=== PATIENT | male | born 1965 | race Caucasian/White ===

== ENCOUNTER 2021-01-05 14:38 | Emergency (ER) | payer BC, SELFPAY ==
[2021-01-05 14:39] VITALS: BP 144/93; PULSE 76; RESP 20; TEMP 37; O2SAT 97; BMI 39.0
[2021-01-05 14:44] VITALS: BMI 39.0
[2021-01-05 14:45] LABS: Bedside Glucose 81 mg/dL (70-110)
--- NOTE | 2021-01-05 14:58 | CT_ITS ---
STUDY: CT HEAD STROKE PROTOCOL W/O CONTRAST INJECTION REASON FOR EXAM: Male, 55 years old. Neuro deficit, acute, stroke suspected RADIATION DOSAGE (If Supplied By Facility): CTDIvol = ( 44.99 ) mGy, DLP = ( 796.11 ) mGycm TECHNIQUE: Transaxial CT imaging of the brain was performed without administration of intravenous contrast material. Individualized dose optimization techniques were used for this CT. COMPARISON: No relevant priors. FINDINGS: Normal soft tissue structures. Normal calvarium. Normal size ventricles and extra-axial spaces for the patient''s age. Normal white matter tracts of the cerebral hemispheres. Normal basal ganglia and thalami. Normal brainstem. Normal cerebellum. There is no intracranial hemorrhage. There are no findings of an acute ischemic infarction. Atherosclerotic calcification of the cavernous portions of the internal carotid arteries bilaterally. Normal visualized paranasal sinuses. CT/STROKE Brain/Head without Cont IMPRESSION: Normal unenhanced CT scan of the brain. N.B. : The above Results were Read Back by Kwabena Aguilar MD to Fly Contreras and understanding confirmed on 01/05/2021 15:25:41 (ET). Electronically Signed: Kwabena Aguilar MD at 15:26 EDT , Service support ,
--- NOTE | 2021-01-05 14:58 | EKG12_ITS ---
Test Reason : NEURO Blood Pressure : / mmHG Vent. Rate : 081 BPM Atrial Rate : 081 BPM P-R Int : 158 ms QRS Dur : 098 ms QT Int : 370 ms P-R-T Axes : 055 -66 042 degrees QTc Int : 429 ms Normal sinus rhythm Left anterior fascicular block Poor R wave progression Abnormal ECG Confirmed by RADHA MOSQUERA, HAYDE ([id number]), senior editor CHRISTINE HERRERA ([id number]) on 01/08/2021 9:58:29 AM Referred By: KURTIS Confirmed By:HAYDE GARCIA MD
--- NOTE | 2021-01-05 15:00 | ED.VIS.STROK ---
HPI History of Present Illness Chief Complaint: Neuro S/Sx Informant: patient Onset/Context/Timing Onset: Today Context: Gradual Onset Timing: Continuous Quality and Location: Positive for Left Face Parasthesia (Now; initially entire face was tingling including forehead bilaterally) Current Severity: Mild Maximum Severity: Moderate Worsened by: Nothing including late Relieved by: Ibuprofen Associated Symptoms Associated Symptoms: Positive for Headache; Negative for Nausea, Vomiting and Chest Pain Narrative Narrative: Patient developed a headache this morning left retro-orbital/frontal, along with tingling throughout his face bilaterally including the forehead and no other neurologic symptoms. No photophobia, nausea, vomiting, confusion, vision changes. He has a lazy eye and that is no different today than it has been always. He denies any recent injury or illness. He states he had a heart attack a long time ago, but just stopped taking aspirin years ago and does not see a doctor regularly. Therefore he takes no medications for anything right now. He was seen in urgent care today because of the tingling and a concern for stroke sent to the emergency department. He states right now, the headache is gone, ibuprofen took it away and made the tingling almost completely go away along with it, except he just has some slight amount of tingling along his parrish on the left side only and nowhere else. No problems walking today. [facility] Medical History ST elevation (STEMI) myocardial infarction Allergy/AdvReac Type Severity Reaction Status Date / Time No Known Allergies Allergy Verified 01/05/21 14:41 Social History Smoking Status: Current every day smoker tobacco type: cigarettes ROS ROS ED Constitutional Constitutional ED: Denies chills or fever(s) Eyes Eyes: Denies change in vision or diplopia ENT ENT ED: Denies rhinorrhea or sore throat Cardiovascular Cardiovascular: Denies chest pain or palpitations Respiratory/Chest Respiratory/Chest: Denies cough or dyspnea Gastrointestinal Gastrointestinal: Denies abdominal pain, diarrhea, nausea or vomiting Genitourinary Genitourinary ED: Denies dysuria or hematuria Musculoskeletal Musculoskeletal: Denies back pain or neck pain Integumentary Denies abscess or rash Neurologic Neurologic: Reports as per HPI, headache(s) and paresthesias; Denies confusion, lack of coordination or weakness Psychiatric Psychiatric: Denies anxiety or suicidal thoughts EXAM Physical Exam Const Vital Signs: 01/05/21 14:39 01/05/21 15:05 01/05/21 15:50 Temperature 98.6 F Temperature Source Oral Pulse Rate 76 73 Respiratory Rate 20 H 19 H Blood Pressure 144/93 H 139/91 H Blood Pressure Mean 110 107 Pulse Ox 97 96 Oxygen Delivery Method Room Air Room Air Room Air 01/05/21 18:00 01/05/21 19:13 Temperature Temperature Source Pulse Rate 71 72 Respiratory Rate 20 H 14 Blood Pressure 136/99 H 131/88 H Blood Pressure Mean 111 102 Pulse Ox 96 96 Oxygen Delivery Method Room Air Room Air Positive well nourished and well developed General Appearance ED: well developed and NAD HEENT Reports moist mucous membranes normocephalic and atraumatic Eyes PERRL and EOMs intact bilaterally Eyes Narrative: Lazy right eye that corrects with following fingers Neck full ROM, no lymphadenopathy, supple and no JVD Resp normal respiratory effort and clear to auscultation bilaterally Cardio regular rate, regular rhythm and no murmurs GI non-tender and non-distended Auscultation: normoactive bowel sounds Palpation: soft Back/Spine no CVA tenderness General Back: other FROM Extremity normal to inspection General Extremety ED: Negative for edema, pulses abnormal or tenderness General Extremity: Negative for edema or pulses abnormal Neuro oriented x3, CN's II-XII intact bilaterally and no sensory deficits noted Sensorium / Orientation: awake and alert Motor Exam: strength 5/5 throughout Psych mental status grossly normal Skin no rashes or lesions noted and no wounds STROKE Vital Signs/Narrative: Vital Signs Pulse Resp BP Pulse Ox 01/05/21 19:13 72 14 131/88 H 96 01/05/21 18:00 71 20 H 136/99 H 96 NIHSS Initial: 1a Level of Consciousness: 0 1b LOC Questions (Score 2 if aphasic/stupor): 0 1c LOC Commands (Only score 1st attempt): 0 2 Best Gaze (If aphasic, use reflexive mvmts.): 0 3 Visual: 0 4 Facial Palsy: 0 5 Motor Arm Right (UN = amputation/fusion): 0 5 Motor Arm Left: 0 6 Motor Leg Right: 0 6 Motor Leg Left: 0 7 Limb ataxia (Only + if out of proportion): 0 8 Sensory (Aphasia/stupor=0 or 1, coma=2): 1 9 Best Language: 0 10 Dysarthria (mute, coma=2, intubated=UN): 0 11 Extinction and Inattention (only scored if +): 0 Total Score: 1 MDM MDM MDM Narrative Medical decision making narrative: Plain CT unremarkable as are labs and EKG. Glucose 81 normal. Patient was given Reglan, since migraine headache with neurologic features in the differential, it did not seem to make a difference, may be improved the paresthesias a little but still present. Objectively, the paresthesias stop near the corner of his mouth, and do not progress all the way to the midline in the perioral area. It stays within the confines of his parrish, interestingly. I am at a low suspicion that this is actually ischemic stroke. Patient is here in the late afternoon during business hours when the MR tech is available, and she is able to fit the patient in. Therefore I thought it was best to get a plain MRI brain now, in order to rule this out, therefore the patient will not need to be admitted if negative. MRI has below returned negative for anything acute. Patient still has very mild tingling in his left parrish/face. Stable for discharge and close outpatient follow-up. He has no doctor, so he was referred to the next doctor on the unassigned list, Dr. Nuno. Lab Data Attestation: I reviewed the patient's lab results. Labs: Laboratory Results - last 24 hr 01/05/21 01/05/21 01/05/21 14:43 14:45 14:45 WBC 10.1 RBC 5.20 Hgb 16.0 Hct 46.4 MCV 89.2 MCH 30.8 MCHC 34.5 RDW Std Deviation 47.4 H RDW Coeff of Chai 14.5 Plt Count 227 MPV 9.7 Immature Gran % (Auto) 0.400 Neut % (Auto) 61.1 Lymph % (Auto) 26.3 Shannon % (Auto) 9.3 Eos % (Auto) 2.3 Baso % (Auto) 0.6 Absolute Neuts (auto) 6.2 Absolute Lymphs (auto) 2.66 Nucleated RBC % 0 Sodium 140 Potassium 4.2 Chloride 106 Carbon Dioxide 29.0 Anion Gap 5 BUN 22 H Creatinine 0.77 Estim Creat Clear Calc 95.40 Est GFR (MDRD) Af Amer 135 Est GFR (MDRD) Non-Af 112 BUN/Creatinine Ratio 28.6 H Glucose 85 Calcium 9.1 Troponin I High Sens 7.0 POC Glucose 81 Radiography Diagnostic Testing: Radiology Impression Brain CT 01/05/21 14:58 IMPRESSION: Normal unenhanced CT scan of the brain. N.B. : The above Results were Read Back by Kwabena Aguilar MD to Fly Contreras and understanding confirmed on 01/05/2021 15:25:41 (ET). Electronically Signed: Kwabena Aguilar MD at 15:26 EDT , Service support , ADDENDUM: 01/05/21 1533 IMPRESSION: Normal unenhanced CT scan of the brain. N.B. : The above Results were Read Back by Kwabena Aguilar MD to Fly Contreras and understanding confirmed on 01/05/2021 15:25:41 (ET). Electronically Signed: Kwabena Aguilar MD at 15:26 EDT , Service support , Chest X-Ray 01/05/21 15:15 IMPRESSION: Normal x-ray examination of the chest. Electronically Signed: Kwabena Aguilar MD at 15:23 EDT , Service support , Brain MRI 01/05/21 16:54 IMPRESSION: Mild atrophy and periventricular white matter ischemic changes. No evidence for acute infarct Electronically Signed: Pee Cortez MD at 19:47 EDT , Service support , EKG Initial EKG: Attestation: I personally reviewed and interpreted this EKG as follows: Interpretation: Sinus Rhythm, No Acute Injury Pattern and LAFB Prior: No Prior Stroke Documentation Questions Stroke Team Activated: No (Stroke not the most likely condition here, no cortical symptoms) Discharge Plan Triage Chief Complaint: Neuro S/Sx ED Provider: Fly Contreras Dx/Rx/DC Orders Clinical Impression: Facial paresthesia, Headache Instructions: ED Paraesthesias Primary Care Provider: Care Physician,No Primary Referrals: Claudia Nuno MD [STAFF PHYSICIAN] - (call for appt) Care Physician,No Primary [Primary Care Provider] - Disposition Disposition: Home, Self Care
[2021-01-05 15:12] LABS: Absolute Lymphocyte Count 2.66 X10^3/uL (0.83-4.51); Absolute Neutrophil Count 6.2 X10^3/uL (2.0-7.7); Basophil# 0.06 X10^3/uL; Basophil% 0.6 % (0-1); Eosinophil# 0.23 X10^3/uL; Eosinophils% 2.3 % (0-5); Hematocrit 46.4 % (40-54); Lymphocyte # 2.66 X10^3/ul (0.83-4.51); Lymphocyte % 26.3 % (19-41); Mean Corp Hgb Conc 34.5 g/dL (32-36); Mean Corpuscular Hgb 30.8 pg (27.0-32.0); Mean Corpuscular Volume 89.2 fL (80-94); Mean Platelet Vol. 9.7 fl (6.2-12.0); Monocyte# 0.94 X10^3/uL; Monocyte% 9.3 % (0-10); NRBC Flagged by Analyzer 0 % (0-5); Neutrophil # 6.19 X10^3/uL (2.7-7.7); Neutrophil % 61.1 % (47-70); Platelet Count 227 K/mm3 (150-450); RBC Distribution Width CV 14.5 % (11.6-14.6); RBC Distribution Width SD 47.4 fl (35.1-43.9); White Blood Count 10.1 K/mm3 (4.4-11.0)
--- NOTE | 2021-01-05 15:12 | ED.RN ---
PT WALKED BACK FROM TRIAGE FOR NEURO SX. DR. HULL MADE AWARE OF SX, REPORTS NO STROKE TEAM AT THIS TIME, AND THAT PT WILL BE EVALUATED FIRST.
--- NOTE | 2021-01-05 15:15 | RAD_ITS ---
STUDY: X-RAY CHEST REASON FOR EXAM: Male, 55 years old. Neuro deficit, acute, stroke suspected TECHNIQUE: Single AP portable view of the chest. COMPARISON: None. FINDINGS: EKG electrodes are seen. The lungs are clear and expanded. There is no demonstrated pleural abnormality. Normal size heart. Normal mediastinum and tiburcio. Normal visualized pulmonary arteries. Normal visualized aortic arch and descending thoracic aorta. Normal visualized thoracic spine. Normal visualized ribs, clavicles, and shoulders. There is no demonstrated abnormality of the visualized soft tissue structures of the upper abdomen. RAD/Chest 1 View IMPRESSION: Normal x-ray examination of the chest. Electronically Signed: Kwabena Aguilar MD at 15:23 EDT , Service support ,
[2021-01-05] MEDS: Metoclopramide 10 MG/2 ML Vial 5 MG IV (15:26)
[2021-01-05 15:29] LABS: Anion Gap 5 (5-15); BUN 22 mg/dL (7-18); BUN/Creat Ratio 28.6 RATIO (10-20); Calcium,Total 9.1 mg/dL (8.5-10.1); Chloride 106 mmol/L (98-107); Creatinine, Serum 0.77 mg/dL (0.70-1.30); EST Glomerular Filtration Rate 112 mL/min (>60); Est Glom Filt Rate - Afr Amer 135 mL/min (>60); Glucose 85 mg/dL (74-106); Potassium 4.2 mmol/L (3.5-5.1); Sodium Level 140 mmol/L (136-145)
--- NOTE | 2021-01-05 15:31 | CM.ED ---
SW Note Referral Source: Case Find Referral Reason: No PCP SW met with patient in the ED. SW noted that patient had no Primary Care Provider (PCP). SW provided patient with list of PCP and encouraged him to obtain a PCP. No further SW services needed. Plan: PCP resources provided Edna BURGOS
[2021-01-05 15:50] VITALS: BP 139/91; PULSE 73; RESP 19; O2SAT 96
--- NOTE | 2021-01-05 16:54 | MRI_ITS ---
STUDY: MRI BRAIN WITHOUT CONTRAST REASON FOR EXAM: Male, 55 years old. left facial numbness and tingling, headache TECHNIQUE: Standardized multiplanar fat and water weighted pulse sequences were obtained. COMPARISON: CT of the brain 01/05/2021 FINDINGS: Mild atrophy and periventricular white matter ischemic changes without mass effect or restricted diffusion.. Normal bilateral basal ganglia. Normal thalami. There is no extra-axial fluid accumulation. Normal flow voids within the major intracranial circulation suggesting patency by spin echo criteria. Normal sella turcica, pituitary gland, infundibular stalk, optic chiasm and hypothalamus. Normal tectal plate and pineal gland. Normal midbrain, guero and medulla. Normal cerebellum. Normal basal cisterns. Normal bilateral temporal bones. Normal bilateral internal auditory canals. No demonstrated orbital abnormality, within the constraints of a routine brain study. Normal visualized paranasal sinuses. Normal calvarium and skull base. Normal visualized soft tissue structures. Normal visualized upper cervical spine. MRI/Brain without Contrast IMPRESSION: Mild atrophy and periventricular white matter ischemic changes. No evidence for acute infarct Electronically Signed: Pee Cortez MD at 19:47 EDT , Service support ,
[2021-01-05 18:00] VITALS: BP 136/99; PULSE 71; RESP 20; O2SAT 96
[2021-01-05 19:13] VITALS: BP 131/88; PULSE 72; RESP 14; O2SAT 96
[2021-01-05 20:12] VITALS: BP 129/99; PULSE 81; RESP 16; O2SAT 97
== END 2021-01-05 20:13 | disposition home or self-care (01) ==
PROVIDERS: Emergency Provider Emergency Medicine
DX: R51.9 Headache, unspecified (principal); R20.2 Paresthesia of skin; I67.82 Cerebral ischemia; F17.210 Nicotine dependence, cigarettes, uncomplicated; I25.2 Old myocardial infarction
CPT/HCPCS: 70450; 70551; 71045; 80048; 82962; 84484; 85025; 93005; 99284; A4216

== ENCOUNTER → 2021-02-03 11:11 | Outpatient (CLI) | payer BC, SELFPAY ==
[2021-02-03 12:38] LABS: Absolute Lymphocyte Count 2.06 X10^3/uL (0.83-4.51); Absolute Neutrophil Count 6.8 X10^3/uL (2.0-7.7); Basophil# 0.06 X10^3/uL; Basophil% 0.6 % (0-1); Eosinophil# 0.11 X10^3/uL; Eosinophils% 1.1 % (0-5); Hematocrit 47.1 % (40-54); Hemoglobin 16.2 g/dL (13.0-16.5); Lymphocyte # 2.06 X10^3/ul (0.83-4.51); Lymphocyte % 21.1 % (19-41); Mean Corp Hgb Conc 34.4 g/dL (32-36); Mean Corpuscular Hgb 30.8 pg (27.0-32.0); Mean Corpuscular Volume 89.5 fL (80-94); Mean Platelet Vol. 9.9 fl (6.2-12.0); Monocyte# 0.71 X10^3/uL; Monocyte% 7.3 % (0-10); NRBC Flagged by Analyzer 0 % (0-5); Neutrophil # 6.79 X10^3/uL (2.7-7.7); Neutrophil % 69.5 % (47-70); Platelet Count 238 K/mm3 (150-450); RBC Distribution Width CV 14.4 % (11.6-14.6); RBC Distribution Width SD 46.9 fl (35.1-43.9); Red Blood Count 5.26 M/mm3 (4.6-6.2); White Blood Count 9.8 K/mm3 (4.4-11.0)
[2021-02-03 13:13] LABS: Vitamin D,25 Hydroxy 30.6 ng/mL
[2021-02-03 13:29] LABS: ALB/GLOB Ratio 1.1 RATIO (0.9-2.4); AST(SGOT) 23 U/L (15-37); Alanine Aminotransfer ALT/SGPT 26 U/L (16-61); Albumin, Serum 3.9 g/dL (3.2-5.0); Alkaline Phosphatase 77 U/L (45-117); Anion Gap 6 (5-15); BUN 12 mg/dL (7-18); BUN/Creat Ratio 21.6 RATIO (10-20); Calcium,Total 8.8 mg/dL (8.5-10.1); Chloride 104 mmol/L (98-107); Cholesterol 158 mg/dL (200); Creatinine, Serum 0.56 mg/dL (0.70-1.30); EST Glomerular Filtration Rate 162 mL/min (>60); Est Glom Filt Rate - Afr Amer 196 mL/min (>60); Globulin 3.6 g/dL (2.2-4.2); Glucose 71 mg/dL (74-106); High Density Lipoprotein 60 mg/dL; Magnesium 2.1 mg/dL (1.6-2.6); PSA,Total - Annual Screen 0.37 ng/mL (0.00-4.00); Potassium 4.1 mmol/L (3.5-5.1); Protein, Total 7.5 g/dL (6.4-8.2); Sodium Level 136 mmol/L (136-145); Thyroid Stim Hormone (TSH) 0.99 uIU/mL (0.358-3.74); Triglycerides 46 mg/dL; Very Low Density Lipoprotein 9 mg/dL (5-40)
[2021-02-03 16:51] LABS: Hemoglobin A1c 5.1 % (3.8-5.6)
== END ==
PROVIDERS: PCP Internal Medicine; Visit Provider Internal Medicine
DX: R20.0 Anesthesia of skin (principal); R51.9 Headache, unspecified; R20.2 Paresthesia of skin; F10.11 Alcohol abuse, in remission
CPT/HCPCS: 36415; 80053; 80061; 82306; 83036; 83735; 84153; 84443; 85025; G0103

== ENCOUNTER → 2021-02-18 10:05 | Outpatient (CLI) | payer BC, SELFPAY ==
--- NOTE | 2021-02-18 10:07 | MRI_ITS ---
STUDY: MRA OF THE HEAD WITHOUT CONTRAST REASON FOR EXAM: Male, 56 years old. left facial tingling, left headache recurrent TECHNIQUE: 3-D [id number] (TOF) imaging was performed with MIPs. The study was performed unenhanced. COMPARISON: None. FINDINGS: Normal bilateral petrous carotid arteries. Normal right cavernous carotid artery with a normal supraclinoid bifurcation. Normal left cavernous carotid artery with a normal supraclinoid bifurcation. Normal right A1 segments of the anterior cerebral artery. Normal left A1 segments of the anterior cerebral artery. Normal intact anterior communicating artery (ACOM). Normal bilateral A2 segments of the anterior cerebral arteries. Normal right M1 and M2 segments of the middle cerebral arteries, with a normal M1 bifurcation. Normal left M1 and M2 segments of the middle cerebral arteries, with a normal M1 bifurcation. Normal right posterior communicating artery (PCOM). Normal left posterior communicating artery (PCOM). Normal bilateral vertebral arteries. Normal basilar artery with a normal basilar bifurcation. The visualized bilateral superior cerebellar (SCA) arteries are normal. Normal bilateral P1, P2 and visualized P3 segments of the posterior cerebral arteries. There is no demonstrated aneurysm of the [place]. There is no major vessel occlusion or hemodynamically significant stenosis. There is no demonstrated abnormality of the visualized brain. MRI/MRA Head ONLY without Contrast IMPRESSION: Normal MRA of the head Electronically Signed: Darryl Teresa MD at 14:35 EDT Tel , Service support ,
--- NOTE | 2021-02-18 10:07 | MRI_ITS ---
STUDY: MRA NECK WITHOUT CONTRAST REASON FOR EXAM: Male, 56 years old. left facial tingling, left headache recurrent TECHNIQUE: Source images were obtained, MIPs were performed. The study was performed unenhanced. COMPARISON: None. FINDINGS: RIGHT CAROTID ARTERIES: Normal right common carotid artery (CCA). Normal right common carotid bulb. Normal origin of the right internal carotid (ICA) artery without a hemodynamically significant stenosis. Normal visualized cervical portion of the right internal carotid artery. Normal origin of the right external carotid artery (ECA). LEFT CAROTID ARTERIES: Normal left common carotid artery (CCA). Normal left common carotid bulb. Normal origin of the left internal carotid (ICA) artery without a hemodynamically significant stenosis. Normal visualized cervical portion of the left internal carotid artery. Normal origin of the left external carotid artery (ECA). VERTEBRAL ARTERIES: Normal antegrade flow within the bilateral vertebral artery without a hemodynamically significant stenosis. MRI/MRA Neck without Contrast IMPRESSION: Normal bilateral cervical carotid and vertebral arteries. Electronically Signed: Darryl Teresa MD at 14:36 EDT Tel , Service support ,
== END ==
PROVIDERS: PCP Internal Medicine; Referring Provider Internal Medicine; Visit Provider Internal Medicine
DX: R51.9 Headache, unspecified (principal); R20.0 Anesthesia of skin
CPT/HCPCS: 70544; 70547

== ENCOUNTER → 2024-07-23 | Outpatient (CLI) | payer BC, SELFPAY ==
[2024-07-23 12:56] LABS: Absolute Lymphocyte Count 2.36 X10^3/uL (0.83-4.51); Absolute Neutrophil Count 5.5 X10^3/uL (2.0-7.7); Basophil# 0.08 X10^3/uL; Basophil% 0.9 % (0-1); Eosinophil# 0.38 X10^3/uL; Eosinophils% 4.2 % (0-5); Hematocrit 48.4 % (40-54); Hemoglobin 16.1 g/dL (13.0-16.5); Lymphocyte # 2.36 X10^3/ul (0.83-4.51); Mean Corp Hgb Conc 33.3 g/dL (32-36); Mean Corpuscular Hgb 28.9 pg (27.0-32.0); Mean Corpuscular Volume 86.9 fL (80-94); Mean Platelet Vol. 9.6 fl (6.2-12.0); Monocyte% 7.7 % (0-10); NRBC Flagged by Analyzer 0 % (0-5); Neutrophil # 5.52 X10^3/uL (2.7-7.7); Platelet Count 225 K/mm3 (150-450); RBC Distribution Width SD 44.8 fl (35.1-43.9); Red Blood Count 5.57 M/mm3 (4.6-6.2); White Blood Count 9.1 K/mm3 (4.4-11.0)
[2024-07-23 13:27] LABS: ALB/GLOB Ratio 0.9 RATIO (0.9-2.4); AST(SGOT) 18 U/L (15-37); Alanine Aminotransfer ALT/SGPT 23 U/L (16-61); Albumin, Serum 3.6 g/dL (3.2-5.0); Alkaline Phosphatase 75 U/L (45-117); Anion Gap 7 (5-15); BUN 11 mg/dL (7-18); Calcium,Total 8.8 mg/dL (8.5-10.1); Chloride 102 mmol/L (98-107); Cholesterol 163 mg/dL (200); Creatinine, Serum 0.73 mg/dL (0.70-1.30); EST Glomerular Filtration Rate 117 mL/min (>60); Est Glom Filt Rate - Afr Amer 141 mL/min (>60); Globulin 3.8 g/dL (2.2-4.2); Glucose 88 mg/dL (74-106); High Density Lipoprotein 57 mg/dL; Potassium 3.9 mmol/L (3.5-5.1); Protein, Total 7.4 g/dL (6.4-8.2); Sodium Level 135 mmol/L (136-145); Triglycerides 87 mg/dL; Very Low Density Lipoprotein 17 mg/dL (5-40)
[2024-07-23 13:49] LABS: Hemoglobin A1c 5.1 % (3.8-5.6)
== END | disposition home or self-care (01) ==
LOC: VSLAB 11:25
DX: I10 Essential (primary) hypertension (principal); Z13.1 Encounter for screening for diabetes mellitus
CPT/HCPCS: 36415; 80053; 80061; 83036; 84443; 85025

== ENCOUNTER → 2024-09-20 | Outpatient (CLI) | payer BC, SELFPAY | END | disposition home or self-care (01) | DX: R06.00 Dyspnea, unspecified (principal) | CPT/HCPCS: 94010; 94726; 94729 ==

== ENCOUNTER → 2024-09-27 | Outpatient (CLI) | payer BC, SELFPAY ==
--- NOTE | 2024-09-27 13:46 | STRESSREP ---
Stress Test Report Pharmacologic myocardial perfusion stress test. 59-year-old man with a history of chest pain Resting EKG demonstrates sinus rhythm with a rate of 75 bpm. Resting blood pressure is 152/90 mmHg. 0.4 mg of regadenoson was infused per usual protocol followed by rapid intravenous saline flush injection. Continuous EKG monitoring was performed. The maximum heart rate was 109 bpm which was 67% of max impacted heart rate the maximum workload was 1 metabolic equivalent. At rest there were no ST or T wave changes noted to suggest ischemia and at peak infusion nonspecific ST changes were noted which did not meet the criteria for ischemia. No clinical angina is noted. The final blood pressure was 140/78 mmHg. Myocardial perfusion protocol. 14.1 mCi of technetium 99m sestamibi was injected at rest. 0.4 mg of regadenoson was infused per usual protocol. At peak infusion 44.8 mCi of technetium 99m sestamibi was injected stress images were obtained stress and rest images were reconstructed and compared in the short axis vertical long and horizontal long axis. Gated images were also obtained. Perfusion SPECT analysis: Review of the stress images demonstrate normal uptake of tracer noted in all areas of the myocardium. The resting images similar demonstrated normal uptake of tracer noted in all areas of the myocardium. No areas of reversibility are noted to suggest ischemia and no previous infarct is noted. Gated SPECT analysis: The gated ejection fraction is 53%. Conclusion: Normal pharmacologic myocardial perfusion stress test. Preserved ejection fraction.
== END | disposition home or self-care (01) ==
LOC: CVS 06:33
DX: R07.9 Chest pain, unspecified (principal); R06.00 Dyspnea, unspecified
CPT/HCPCS: 78452; 93017; A9500; A4216; J2785